=== PATIENT | female | born 1960 | race Caucasian/White ===

== ENCOUNTER 2018-05-16 10:17 | Day surgery (SDC) | payer OTHER ==
[2018-05-16] MEDS ORDERED: Lactated Ringer's 500 ML IV ONE (10:47)
[2018-05-16 10:54] VITALS: O2SAT 100
[2018-05-16] MEDS ORDERED: Midazolam 2 MG/2 ML VIAL ONE (11:38)
[2018-05-16] MEDS ORDERED: Propofol 10 mg/ml Inj (20 ML) ONE (11:39)
[2018-05-16] MEDS ORDERED: ePHEDrine 50 mg/ml Inj ONE (12:50)
[2018-05-16 13:00] VITALS: RESP 20; TEMP 98
[2018-05-16 13:12] VITALS: BP 102/63; PULSE 66
== END 2018-05-16 13:29 | disposition home or self-care (01) ==
LOC: H.ENDO 10:17
PROVIDERS: ATTEND Internal Medicine Gastroenterology
DX: D12.3 Benign neoplasm of transverse colon (principal); K29.70 Gastritis, unspecified, without bleeding; K51.20 Ulcerative (chronic) proctitis without complications; K64.8 Other hemorrhoids; K63.89 Other specified diseases of intestine; K62.89 Other specified diseases of anus and rectum
CPT/HCPCS: 43239; 45380; 88305; J2001; J2250; J2704; J7120